=== PATIENT | female | born 1990 | race Caucasian/White ===

== ENCOUNTER 2016-11-07 14:56 | Emergency (ER) | payer BC ==
[~2016-11-07] VITALS: Ht 172.7 cm; Wt 56.7 kg
[~2016-11-07 14:56] MED LIST: ADDERALL 10 MG10 MG PO; ADDERALL XR 3030 MG PO; DOXYCYCLINE 10100 MG PO; NORCO 5-325 TA1 EACH PO; OCELLA TABLET1 EACH PO; SENOKOT-S1 TA1 PO
[2016-11-07 15:40] LABS: ABSOLUTE NEUTROPHILS 3.6 thou/uL (1.4-8.2); BASOPHILS 0.4 % (0.0-2.0); EOSINOPHILS 2.1 % (0.0-3.0); HEMATOCRIT 39.1 % (37.0-47.0); HEMOGLOBIN 13.4 gm/dL (12.0-15.0); LYMPHOCYTES 39.1 % (24.0-44.0); MANUAL DIFF NO; MCH 31.7 pg (26.0-34.0); MCHC 34.3 g/dL (28.0-37.0); MCV 92.3 fL (80.0-100.0); MONOCYTES 9.3 % (1.0-8.0); PLATELET COUNT 269 thou/uL (150-400); POLYS 49.1 % (36.0-66.0); RBC 4.23 mil/uL (4.20-5.00); RDW 12.1 % (10.5-14.5); WBC 7.3 thou/uL (4.0-11.0)
[2016-11-07 15:48] LABS: CALCIUM 8.9 mg/dL (8.5-10.1); CREATININE 0.8 mg/dL (0.6-1.0); POTASSIUM 3.4 mmol/L (3.5-5.1)
[2016-11-07 15:49] LABS: URINE BILIRUBIN NEGATIVE (Negative); URINE BLOOD 3+ (Negative); URINE COLOR YELLOW; URINE GLUCOSE-RANDOM* NEGATIVE (Negative); URINE KETONES NEGATIVE (Negative); URINE NITRITE NEGATIVE (Negative); URINE PROTEIN (DIPSTICK) NEGATIVE (Negative); URINE SPECIFIC GRAVITY <= 1.005 (1.003-1.035); URINE UROBILINOGEN 0.2 E.U./dl (0.2-1.0)
[2016-11-07 15:52] LABS: ALBUMIN 3.7 g/dL (3.4-5.0); TOTAL BILIRUBIN 0.9 mg/dL (<0.1-1.0); TOTAL PROTEIN 7.3 g/dL (6.4-8.2)
[2016-11-07 15:53] LABS: BACTERIA 1-9 Few /HPF (None Seen); CASTS None Seen /LPF (None Seen); SQUAMOUS 4-10 Moderate /LPF (0-3); URINE RBC 3-10 Few /HPF (0-2); URINE WBC 6-15 Few /HPF (0-5)
[2016-11-07 15:54] LABS: CRYSTALS None Seen /LPF (None Seen)
[2016-11-07] MEDS ORDERED: PHENERGAN 25 MG25 M1 PO (17:22)
[2016-11-07] MEDS ORDERED: HYDROCODONE-AP1 EAC6 PO (17:22)
[2016-11-07] MEDS ORDERED: BENTYL 20 MG TA20 M1 PO (17:22)
[2016-11-07] MEDS ORDERED: PROBIOTIC1 EAC2 PO (17:39)
[2016-11-07] MEDS ORDERED: VITAMINC500 PO (17:40)
[2016-11-07] MEDS ORDERED: MAGNESIUM500 MG PO (17:40)
[2016-11-07] MEDS ORDERED: HAIR, SKIN & N1 EAC1 PO (17:41)
== END 2016-11-07 17:47 | disposition home or self-care (01) ==
LOC: ER 14:56
PROVIDERS: Physician Assistant
DX: R10.11 Right upper quadrant pain (principal); R10.32 Left lower quadrant pain; F10.99 Alcohol use, unspecified with unspecified alcohol-induced disorder; F90.9 Attention-deficit hyperactivity disorder, unspecified type; Z88.2 Allergy status to sulfonamides; Z98.890 Other specified postprocedural states